=== PATIENT | female | born 1985 | race Caucasian/White ===

== ENCOUNTER 2021-07-26 17:11 | Inpatient (IN) ==
[2021-07-26 17:38] LABS: Bacteria,Urine Occasional /HPF (Few); Bilirubin,Urine Negative (Negative); Blood, Urine Negative (Negative); Glucose,Urine (UA) Negative (Negative); Ketones,Urine Negative (Negative); Mucus,Urine Occasional /LPF (Occasional); Nitrite,Urine Negative (Negative); Protein,Urine Negative; RBC,Urine 1 /HPF (0-4); Squamous Epithelial Cell,Urine Occasional /HPF (0-10); Urine Appearance CLEAR (Clear); Urine Color Yellow (Yellow); Urine Specific Gravity 1.006 (1.001-1.035); Urine Urobilinogen < 2.0 EU/DL (0.2-1.0)
[2021-07-26] MEDS ORDERED: BUTORPHANOL 2 MG/ML VIAL IV PRN (18:17)
[2021-07-26] MEDS ORDERED: LACTATED RINGERS 1,000 ML IV SCH (18:30)
[2021-07-27] MEDS ORDERED: LACTATED RINGERS 1,000 ML IV PRN (09:13)
[2021-07-27] MEDS ORDERED: ONDANSETRON 4 MG/2 ML VIAL IV PRN ×2 (09:13→21:43)
[2021-07-27] MEDS ORDERED: LACTATED RINGERS 250 ML IV ONE (09:13)
[2021-07-27] MEDS ORDERED: INFLUENZA VIRUS VACCINE 0.5 ML SYRINGE IM ONE (09:25)
[2021-07-27] MEDS ORDERED: OXYTOCIN/LR 20 UNIT/1,000 ML BAG IV SCH (09:30)
[2021-07-27 09:33] LABS: Basophils % 0.2 % (0.0-0.8); Eosinophils # 0.1 10*3/uL (0.0-0.87); Eosinophils % 0.8 % (0.00-10.9); Hematocrit 34.7 VOL% (35.7-47.0); Hemoglobin 11.4 GM/DL (12.0-16.0); Immature Granulocytes % 0.7 %; Immature Granulocytes Absolute 0.08 #; Lymphocytes # 2.6 10*3/uL (1.4-4.0); Lymphocytes % 21.4 % (21.3-54.2); Mean Corpuscular HGB Conc 32.9 GM/DL (32-36); Mean Platelet Volume 9.8 FL (9.6-12.0); Monocytes % 4.6 % (1.7-12.7); Neutrophils % 72.3 % (38.7-73.9); Platelet Count 315 T/CUMM (130-400); Red Blood Count 3.73 MC/CUMM (3.8-5.5); Red Cell Distribution Width 12.9 % (9.3-17.3); White Blood Count 12.2 T/CUMM (4-12)
[2021-07-27] MEDS ORDERED: diphenhydrAMINE 50 MG/1 ML VIAL IV PRN ×2 (09:35)
[2021-07-27] MEDS ORDERED: ePHEDrine 50 MG/ML VIAL IV PRN (09:35)
[2021-07-27] MEDS ORDERED: CITRIC ACID/SODIUM CITRATE 30 ML UDCUP PO ONE (09:35)
[2021-07-27] MEDS ORDERED: LACTATED RINGERS 1,000 ML IV ONE (09:35)
[2021-07-27] MEDS ORDERED: NALOXONE 0.4 MG/ML VIAL IV PRN (09:35)
[2021-07-27] MEDS ORDERED: FAMOTIDINE 20 MG/2 ML VIAL IV ONE (09:35)
[2021-07-27] MEDS ORDERED: fentaNYL 2 MCG/ROPIV 0.2% EPID 100 ML EPIDURAL SCH (10:00)
[2021-07-27] MEDS ORDERED: LACTATED RINGERS 1,000 ML IV SCH ×2 (10:00)
[2021-07-27 10:02] LABS: Albumin 2.8 G/DL (3.4-5.0); Bilirubin,Total 0.7 MG/DL (0.20-1.00); Calcium 8.9 MG/DL (8.5-10.1); Osmolality,Calculated 274.4 MOS/KG (273-304); Potassium 3.7 MMOL/L (3.5-5.1); Total Protein 6.9 G/DL (6.4-8.2)
[2021-07-27] MEDS ORDERED: TRANEXAMIC ACID 1,000 MG/10 ML VIAL ONE (10:48)
[2021-07-27] MEDS ORDERED: miSOPROStoL 200 MCG TABLET ONE (10:48)
[2021-07-27] MEDS ORDERED: METHYLERGONOVINE 0.2 MG/1 ML AMP ONE (10:49)
[2021-07-27] MEDS ORDERED: CARBOPROST TROMETHAMINE 250 MCG/ML AMP IM ONE (10:49)
[2021-07-27] MEDS ORDERED: OXYTOCIN/LR 20 UNIT/1,000 ML BAG IV ONE ×2 (10:49→21:43)
[2021-07-27] MEDS ORDERED: SODIUM CHLORIDE 0.9% 0 ML IV ONE (10:49)
[2021-07-27 13:45] LABS: Bilirubin,Urine Negative (Negative); Blood, Urine Negative (Negative); Glucose,Urine (UA) Negative (Negative); Ketones,Urine 80 mg/dL (Negative); Mucus,Urine Occasional /LPF (Occasional); Nitrite,Urine Negative (Negative); Protein,Urine Negative; RBC,Urine 1 /HPF (0-4); Urine Appearance CLEAR (Clear); Urine Color Yellow (Yellow); Urine Specific Gravity 1.015 (1.001-1.035); Urine Urobilinogen < 2.0 EU/DL (0.2-1.0)
[2021-07-27] MEDS ORDERED: MEPERIDINE 50 MG/1 ML VIAL IV PRN (13:58)
[2021-07-27 17:54] LABS: Cord Venous Blood HCO3 21.1 MMOL/L; Cord Venous Blood PCO2 41.3 MMHG; Cord Venous Blood PO2 31.4
[2021-07-27] MEDS ORDERED: RHO(D) IMMUNE GLOBULIN 300 MCG SYRINGE IM ONE (21:43)
[2021-07-27] MEDS ORDERED: oxyCODONE/ACETAMINOPHEN 5-325 MG TABLET PO PRN ×2 (21:43)
[2021-07-27] MEDS ORDERED: HYDROCORTISONE 2.5% RECTAL CREAM 30 GM TUBE TOP PRN (21:43)
[2021-07-27] MEDS ORDERED: WITCH HAZEL PADS 100/JAR TOP PRN (21:43)
[2021-07-27] MEDS ORDERED: LANOLIN 50% CREAM 0.3 OZ TUBE TOP PRN (21:43)
[2021-07-27] MEDS ORDERED: MEASLES/MUMPS/RUBELLA VACCINE 0.5 ML VIAL SUBCUT ONE (21:43)
[2021-07-27] MEDS ORDERED: BENZOCAINE 20%/MENTHOL 0.5% SPRAY 56 GM CAN TOP PRN (21:43)
[2021-07-27] MEDS ORDERED: ACETAMINOPHEN 325 MG TABLET PO PRN (21:43)
[2021-07-27] MEDS ORDERED: BISACODYL 10 MG SUPP RECTAL PRN (21:43)
[2021-07-27] MEDS ORDERED: DIPH/TET/ACEL PERT BOOSTER VACCINE 0.5 ML VIAL IM ONE (21:43)
[2021-07-27] MEDS: DOCUSATE SODIUM 100 MG CAPSULE PO SCH (22:22)
[2021-07-28] MEDS: IBUPROFEN 800 MG TABLET PO PRN ×2 (01:33→07:45)
[2021-07-28 05:15] LABS: Basophils # 0.1 10*3/uL (0.0-0.2); Basophils % 0.3 % (0.0-0.8); Eosinophils # 0.1 10*3/uL (0.0-0.87); Eosinophils % 0.8 % (0.00-10.9); Hematocrit 30.5 VOL% (35.7-47.0); Immature Granulocytes % 0.6 %; Immature Granulocytes Absolute 0.09 #; Lymphocytes # 2.8 10*3/uL (1.4-4.0); Lymphocytes % 17.9 % (21.3-54.2); Mean Corpuscular HGB Conc 32.8 GM/DL (32-36); Mean Corpuscular Volume 93.3 FL (87-102); Monocytes % 5.4 % (1.7-12.7); Platelet Count 268 T/CUMM (130-400); Red Blood Count 3.27 MC/CUMM (3.8-5.5); Red Cell Distribution Width 12.9 % (9.3-17.3); White Blood Count 15.4 T/CUMM (4-12)
[2021-07-28] MEDS: DOCUSATE SODIUM 100 MG CAPSULE PO SCH ×2 (07:45→19:57)
[2021-07-28] MEDS: KETOROLAC 10 MG TABLET PO SCH ×2 (13:30→19:56)
[2021-07-28] MEDS ORDERED: KETOROLAC 10 MG TABLET PO SCH (13:45)
[2021-07-29] MEDS: DOCUSATE SODIUM 100 MG CAPSULE PO SCH ×2 (00:02→08:36)
[2021-07-29 08:45] VITALS: BP 130/74
== END 2021-07-29 13:05 | disposition home or self-care (01) | DRG 807 ==
LOC: N.LDOUT 17:11 → N.LD 17:12 → N.OB 07-27 21:35
PROVIDERS: ADMIT Specialist; ATTEND Specialist